=== PATIENT | female | born 1975 | race Caucasian/White ===

== ENCOUNTER 2017-08-30 20:18 | Inpatient (IN) | payer OTHER ==
[~2017-08-30] VITALS: Ht 172.7 cm; Wt 76.0 kg
[2017-08-30 20:49] LABS: HEMATOCRIT 40.8 % (34.6-47.8); HEMOGLOBIN 14.1 g/dL (11.7-16.4); WHITE BLOOD COUNT 22.7 x10^3/uL (3.4-10)
[2017-08-30] MEDS ORDERED: SODIUM CHLORIDE 0.9% 1,000ML IVBOLUS ONE (21:00)
[2017-08-30] MEDS ORDERED: KETOROLAC 30 MG/1 ML IVPush ONE (21:00)
[2017-08-30] MEDS ORDERED: SODIUM CHLORIDE FLUSH 10ML SYR IVF ONE (21:00)
[2017-08-30 21:01] LABS: ASPARTATE AMINO TRANSFERASE 27 U/L (15-37); BLOOD UREA NITROGEN 19 mg/dL (7-18)
[2017-08-30 21:08] LABS: DIFF TOTAL CELLS COUNTED 100 CELL DIFF
[2017-08-30 21:10] LABS: VERIFY COUNTS? YES
[2017-08-30 22:07] LABS: PATH.CAST-FLAG NOT PRESENT; SPERM-FLAG NOT PRESENT; SRC-FLAG NOT PRESENT; XTAL-FLAG NOT PRESENT; YLC-FLAG NOT PRESENT
[2017-08-30] MEDS ORDERED: KETOROLAC 30 MG/1 ML ONE (22:16)
[2017-08-30] MEDS ORDERED: CEFTRIAXONE PMX 1GM/50ML 50 ML ONE (22:36)
[2017-08-30] MEDS ORDERED: CEFTRIAXONE PMX 1GM/50ML 50 ML IV ONE (23:00)
[2017-08-30] MEDS ORDERED: ONDANSETRON 2MG/ML, 2ML IVPush PRN (23:30)
[2017-08-30] MEDS ORDERED: SODIUM CHLORIDE 0.9% 1,000 ML IV ONE (23:30)
[2017-08-31] MEDS ORDERED: LORazepam 2 MG/ML, 1ML IVPush PRN
[2017-08-31] MEDS ORDERED: hydrALAzine 20 MG/ML, 1ML IVPush PRN
[2017-08-31] MEDS ORDERED: morphine SULFATE 10 MG/ML, 1ML ONE (00:18)
[2017-08-31] MEDS: morphine SULFATE 10 MG/ML, 1ML IVPush PRN ×8 (00:22→21:22)
[2017-08-31 00:45] VITALS: BP 108/61
[2017-08-31] MEDS: SODIUM CHLORIDE 0.9% 1,000 ML IV SCH ×3 (01:38→18:15)
[2017-08-31 05:37] LABS: HEMATOCRIT 34.5 % (34.6-47.8); HEMOGLOBIN 11.7 g/dL (11.7-16.4); WHITE BLOOD COUNT 21.9 x10^3/uL (3.4-10)
[2017-08-31 05:41] LABS: BLOOD UREA NITROGEN 13 mg/dL (7-18)
[2017-08-31 07:49] VITALS: BP 101/64
[2017-08-31] MEDS: FAMOTIDINE 20 MG/2 ML IVPush SCH ×2 (08:20→21:22)
[2017-08-31] MEDS: ENOXAPARIN 40 MG/0.4 ML SQ SCH (08:20)
[2017-08-31] MEDS: CEFTRIAXONE PMX 1GM/50ML 50 ML IV SCH (12:31)
[2017-08-31 14:00] VITALS: BP 107/70
[2017-08-31 19:13] VITALS: BP 105/68
[2017-09-01] MEDS: CEFTRIAXONE PMX 1GM/50ML 50 ML IV SCH ×2 (00:35→12:45)
[2017-09-01] MEDS: morphine SULFATE 10 MG/ML, 1ML IVPush PRN ×6 (00:35→20:28)
[2017-09-01] MEDS: SODIUM CHLORIDE 0.9% 1,000 ML IV SCH ×4 (00:39→20:28)
[2017-09-01 01:35] VITALS: BP 102/67
[2017-09-01 06:36] LABS: HEMATOCRIT 29.7 % (34.6-47.8); HEMOGLOBIN 10.2 g/dL (11.7-16.4); WHITE BLOOD COUNT 10.4 x10^3/uL (3.4-10)
[2017-09-01 06:46] LABS: BLOOD UREA NITROGEN 4 mg/dL (7-18)
[2017-09-01 07:24] VITALS: BP 103/68
[2017-09-01] MEDS: ENOXAPARIN 40 MG/0.4 ML SQ SCH (07:44)
[2017-09-01] MEDS: FAMOTIDINE 20 MG/2 ML IVPush SCH ×2 (07:44→20:29)
[2017-09-01] MEDS ORDERED: ONDANSETRON ODT 4 MG PO PRN (08:00)
[2017-09-01] MEDS ORDERED: OXYcodone/APAP 10/325MG TABLET PO PRN (08:00)
[2017-09-01] MEDS ORDERED: CALCIUM CITRATE 950 MG TABLET PO SCH (08:00)
[2017-09-01] MEDS ORDERED: POTASSIUM CHLORIDE 20 MEQ TAB.ER.PRT PO ONE (08:00)
[2017-09-01 14:09] VITALS: BP 99/62
[2017-09-01] MEDS: OXYcodone IR 5MG TABLET PO PRN ×2 (15:05→19:46)
[2017-09-01 20:00] VITALS: BP 119/75
[2017-09-02] MEDS: morphine SULFATE 10 MG/ML, 1ML IVPush PRN (00:37)
[2017-09-02] MEDS: CEFTRIAXONE PMX 1GM/50ML 50 ML IV SCH (00:37)
[2017-09-02 00:42] VITALS: BP 115/71
[2017-09-02] MEDS: ACETAMINOPHEN 325 MG TABLET PO PRN ×2 (02:50→07:46)
[2017-09-02] MEDS: SODIUM CHLORIDE 0.9% 1,000 ML IV SCH ×2 (02:50→10:00)
[2017-09-02 05:47] LABS: HEMATOCRIT 30.8 % (34.6-47.8); HEMOGLOBIN 10.7 g/dL (11.7-16.4); WHITE BLOOD COUNT 9.1 x10^3/uL (3.4-10)
[2017-09-02 05:58] LABS: BLOOD UREA NITROGEN 2 mg/dL (7-18)
[2017-09-02] MEDS: ENOXAPARIN 40 MG/0.4 ML SQ SCH (07:35)
[2017-09-02] MEDS: FAMOTIDINE 20 MG/2 ML IVPush SCH (07:35)
[2017-09-02] MEDS ORDERED: ONDA4TAB10 PO (08:42)
[2017-09-02] MEDS ORDERED: CIPR500T87 PO (08:42)
[2017-09-02 10:05] VITALS: BP 102/61
== END 2017-09-02 11:00 | disposition home or self-care (01) | DRG 690 ==
LOC: ED 22:38 → EDIP 23:35 → 3NE 08-31 00:39
PROVIDERS: ADMIT Family Medicine; ATTEND Family Medicine
DX: N12 Tubulo-interstitial nephritis, not specified as acute or chronic (principal); N17.9 Acute kidney failure, unspecified; E46 Unspecified protein-calorie malnutrition; R65.10 Systemic inflammatory response syndrome (SIRS) of non-infectious origin without acute organ dysfunction; N20.2 Calculus of kidney with calculus of ureter; E86.0 Dehydration; E87.6 Hypokalemia; Z87.442 Personal history of urinary calculi; Z90.710 Acquired absence of both cervix and uterus; Z68.25 Body mass index [BMI] 25.0-25.9, adult
CPT/HCPCS: 36415; 74176; 80048; 80053; 81001; 83605; 83735; 84145; 85025; 87040; 87086; 96361; 96374; J0696; J1650; J1885; Q0162; J2270; J7030; S0028